=== PATIENT | female | born 1975 | race Caucasian/White ===

== ENCOUNTER 2021-04-29 08:25 | Emergency (ER) | payer OTHER, SELFPAY ==
--- NOTE | ~2021-04-29 | XR_ITS ---
EXAMINATION: XR CHEST CLINICAL INFORMATION: Chest pain COMPARISON: None TECHNIQUE: Frontal view of the chest was obtained. FINDINGS: No significant abnormality is noted involving the heart, lungs, mediastinum, bony thorax or soft tissues. XR/XR chest 1V IMPRESSION: Unremarkable examination.
[2021-04-29 08:28] VITALS: BP 196/121; PULSE 74; RESP 18; TEMP 36.6; O2SAT 100; BMI 28.3
--- NOTE | 2021-04-29 08:41 | ECG_ITS ---
Test Reason : TACHY Blood Pressure : / mmHG Vent. Rate : 068 BPM Atrial Rate : 068 BPM P-R Int : 126 ms QRS Dur : 078 ms QT Int : 440 ms P-R-T Axes : 000 039 033 degrees QTc Int : 467 ms Normal sinus rhythm Normal ECG No previous ECGs available Referred By: Navjot Gonzalez Electronically Signed By:SERGO HERRMANN
[2021-04-29 09:06] LABS: MANUAL DIFF FLAG NO
[2021-04-29 09:09] LABS: Basophils Percent Auto 0.4 % (0-2); Eosinophils Absolute Auto 0.1 X10*3/uL (0.0-0.4); Eosinophils Percent Auto 2.5 % (0-4); Hematocrit 33.8 % (37-47); Hemoglobin 11.2 g/dl (12.0-16.0); Imm Gran Abs Auto 0.01 X10*3/uL (0.00-0.03); Imm Gran Pct Auto 0.4 % (0.0-0.4); Lymphocytes Absolute Auto 0.9 X10*3/uL (1.2-4.9); Mean Corpuscular HGB Conc 33.1 g/dl (31.0-35.0); Mean Corpuscular Hemoglobin 29.7 pg (27.0-33.0); Mean Corpuscular Volume 89.7 fL (80-98); Mean Platelet Volume 9.8 fL (9.4-12.3); Monocytes Absolute Auto 0.3 X10*3/uL (0.1-1.2); Monocytes Percent Auto 11.9 % (2-11); Neutrophils Absolute Auto 1.5 X10*3/uL (2.0-8.3); Neutrophils Percent Auto 52.8 % (45-73); Platelet Count 219 X10*3/uL (160-400); Red Blood Count 3.77 X10*6/uL (4.20-5.50); Red Cell Distribution Width 13.4 % (11.0-16.0); White Blood Count 2.8 X10*3/uL (4.8-10.8)
[2021-04-29 09:30] LABS: Anion Gap 13 (12-20); Blood Urea Nitrogen 16 mg/dL (9-16); Calcium 8.4 mg/dL (8.4-10.2); Carbon Dioxide 24 mmol/L (22-29); Chloride 105 mmol/L (96-108); Creatinine Clr Calc Pharmacy 108.8; Estimated Glomerular Filt Rate > 60; Glucose Random 105 mg/dL (60-115); Potassium 3.2 mmol/L (3.3-5.1); Sodium 139 mmol/L (135-145)
[2021-04-29 09:48] LABS: Troponin-I High Sensitivity < 3.5 ng/L (<3.5-17.0)
[2021-04-29 10:44] VITALS: BP 196/97; PULSE 64; RESP 18; O2SAT 97
[2021-04-29] MEDS: Potassium Chloride Packet 20 MEQ PACKET 40 MEQ PO (10:46)
[2021-04-29] MEDS: diazePAM 5 MG TABLET PO (10:46)
[2021-04-29] MEDS: Ketorolac Tromethamine 30 MG/ML VIAL IVPUSH (10:46)
--- NOTE | 2021-04-29 11:14 | ED_ITS ---
HPI - Chest Pain General Chief Complaint: General Medical Stated Complaint: NUMBNESS RAPID HEART BEAT Time Seen by Provider: 04/29/21 10:18 Source: patient Mode of arrival: ambulatory Limitations: no limitations History of Present Illness HPI narrative: 45-year-old female with a past medical history of anxiety, depr ession, sleep disorder and alcohol abuse presenting to the ED with complaints of midsternal/left-sided chest pain with associated feeling like her heart is racing and left arm tingling/numbness that started on Sunday and has been constant. Reports associated generalized weakness. Reports this started when she was working at [employer] at nighttime. She reports it is worse when she palpates her midsternal/left chest/ breast area. She denies any dizziness, headaches, changes in vision, nausea /vomiting, jaw pain, cough, neck pain, dyspnea on exertion, orthopnea, shortness of breath, abdominal pain, back pain, dysuria, hematuria, lower extremity edema, recent travel or sick contacts, history of cancer or hypercoagulation disorder, recent surgery and she denies being on any OCPs. she denies any drug usage including cocaine. MD complaint: chest pain Onset (ago): day(s) ( 4 days) Timing of current episode: constant and still present Prior episodes: No Onset: other ( while at work) Pain location: substernal, left chest and other ( Left breast) Pain radiation: left arm Severity: moderate Quality: aching, sharp and shooting Relieving factors: nothing Exacerbating factors: palpation and movement Associated symptoms: palpitations Treatment prior to arrival: none Risk Factors Coronary artery disease risk factors: none Thoracic aortic dissection risk factors: none Related Data On Oral Contraceptives: No Previous Rx's Medication Instructions Recorded diazepam [Valium] 5 mg PO TID PRN #14 tab 04/29/21 Allergies Allergy/AdvReac Type Severity Reaction Status Date / Time Sulfa (Sulfonamide Allergy Unknown rash, Verified 10/21/15 00:00 Antibiotics) itching sulfamethoxazole Allergy Unknown HIVES Unverified 07/15/20 15:55 [From BACTRIM] trimethoprim [From BACTRIM] Allergy Unknown HIVES Unverified 07/15/20 15:55 Review of Systems Review of Systems: Constitutional : No Weight loss, No Fever, No Chills, No Night Sweats, No Fatigue, No Malaise ENT/Mouth : No Hearing loss, No Ear Pain, No Nasal Congestion, No Sinus Pain, No Hoarseness, No sore throat, No Rhinorrhea, No Swallowing Difficulty Eyes: No Eye Pain, No Swelling, No Redness, No Foreign Body, No Discharge, No Vision Changes Cardiovascular : positive chest pain /palpitations, No SOB, no Dyspnea on Exertion, No Orthopnea, No Edema, No extremity swelling Respiratory : No Cough, No Sputum, No Wheezing, No Dyspnea Gastrointestinal : No Nausea, No Vomiting, No Diarrhea, No abdominal Pain, No Hematochezia, No Melena Genitourinary : No irregular bleeding, No Dysuria, No Urinary Frequency, No Hematuria, No Urinary Incontinence, No Urgency, No Flank Pain, No Urinary Flow Changes, No Hesitancy Musculoskeletal : No joint pain, No Myalgias, No Joint Swelling Skin : No Skin Lesions, No rash Neuro : positive paresthesias to left arm, No Weakness, No Numbness, No Paresthesias, No Loss of Consciousness, No Dizziness, No Headache Psych : No Anxiety/Panic, No Depression, No SI/HI/AH/VH Heme/Lymph: No Bruising, No Bleeding,No Lymphadenopathy Endocrine : No Polyuria, No Polydipsia, No Temperature Intolerance Yes all other systems are reviewed and are negative [facility] Past Medical History Attestation statement: The following information was validated with the patient. Medical History No known health problems Surgical History Previous section Social History Social History Advance Directives: Yes Advance Directives Information Provided: Yes Advance Directives on File: No Physical Exam Vital Signs: Vital Signs: Last Vital Signs Temp 97.8 F 04/29/21 08:28 Pulse 64 04/29/21 10:44 Resp 18 04/29/21 10:44 BP 196/97 H 04/29/21 10:44 Pulse Ox 97 04/29/21 10:44 Body Mass Index 28.3 vital signs have been reviewed as normal and appeared to be correct. Blood pressure Hypertensive 196/121. Heart rate normal. Respiration rate normal. Temperature normal. Oxygen saturation normal. Appearance: Alert. Oriented X3. No acute distress. Head: Normal external exam. Normocephalic. Atraumatic. Eyes: PERRLA. EOMI. Conjunctiva and sclera normal. Eyelids normal. ENT: Pharynx normal. Uvula midline. Moist mucous membranes. Neck: Normal inspection. Neck supple. FROM. No adenopathy. Thyroid Normal. No meningeal signs. No neck mass noted. CVS: Normal heart rate and rhythm. Heart sound normal. Pulses normal throughout. No murmurs/rales/gallops. Respiratory: No respiratory distress. Painless inspiration. Breath sounds normal. No wheezes/rales/rhonchi noted. Chest reproducible anterior left-sided chest wall/ breast tenderness. No abscesses / lumps noted to the left breast area. No accessory muscle usage noted or decreased air movement noted. Abdomen: Soft and nontender. Bowel sounds normal in all 4 quadrants. No distention noted. No organomegaly noted. No visible injury noted. Back: Full range of motion noted. No rashes/lesion/induration/fluctuance or signs of infection noted. Skin: Skin warm and dry. Normal skin color. Normal skin turgor. No rashes/lesions/lacerations noted. Extremities: No lower extremity edema. No calf tenderness is noted. Extremities exhibit normal range of motion. Extremities nontender. Neuro: Oriented X 3. No motor deficit. No sensory deficit. Reflexes normal. Normal steady gait. No focal neuro deficits noted. Vascular: + radial pulses/+ 2 distal pedal pulses/+2 dorsalis pedis b/l. Normal cap refill. No cyanosis noted to upper extremity nails and lower extremity toes nails. Course Course Course Narrative: 9am 45-year-old female with a past medical history of anxiety, depression, sleep disorder and alcohol abuse presenting to the ED with complaints of midsternal/left-sided chest pain with associated feeling like her heart is racing and left arm tingling/numbness that started on Sunday and has been constant. Reports associated generalized weakness. Reports this started when she was working at [employer] at nighttime. She reports it is worse when she palpates her midsternal/left chest/ breast area. - labs were already drawn and the patient had white blood cell count of 2000. Mild anemia. Potassium of 3.2. Otherwise all other labs are within normal limits. EKG normal sinus rhythm and a ventricular rate of 68 with a normal MS interval normal QRS duration normal QT/ QTC interval. No acute ischemic changes are noted. No prior EKGs to compare to at this time. - Therefore Patient is being given p.o. potassium and 5 mg of Valium then will re-evaluate the patient's blood pressure due to could be elevated due to the patient's anxiety although I do not believe that this is cardiac related as this started at work she has no risk factors for ACS/PE. will re-evaluate. Reevaluation(s) Reevaluation #1: - patient's blood pressure remains elevated now at 183/104. Although patient reports symptomatic relief with the Valium. - The patient's blood pressure may be related to anxiety therefore explained to her that she should buy a blood pressure cuff machine and monitor her blood pressure for the next 2 weeks at least on Sunday/Sunday / Sunday and to write it down and to follow-up with her primary care provider although patient reports that she has not seen her primary care provider in [facility] therefore I contacted the on-call doctor Mandeep Garcia and he reported that he believes that the patient used to see Dr. Leighton Posada and that he would recommend that she contact the office to try to make a new appointment. therefore I gave the stephanie ent a copy of different primary care provider offices that she can contact to obtain a brand new PCP for recheck blood pressure within the next 2 weeks and to return if any new or worsening symptoms. Patient understands agrees with this plan. Time: 12:44 MDM - Chest Pain Medical Records Data Attestation: I reviewed the patient's medical records. Lab Data Attestation: I reviewed the patient's lab results. Result diagrams: 04/29/21 09:03 04/29/21 09:03 Labs: Lab Results 04/29/21 04/29/21 04/29/21 Range/Units 09:03 09:03 09:03 WBC 2.8 L (4.8-10.8) X10*3/uL RBC 3.77 L (4.20-5.50) X10*6/uL Hgb 11.2 L (12.0-16.0) g/dl Hct 33.8 L (37-47) % MCV 89.7 (80-98) fL MCH 29.7 (27.0-33.0) pg MCHC 33.1 (31.0-35.0) g/dl RDW 13.4 (11.0-16.0) % Plt Count 219 (160-400) X10*3/uL MPV 9.8 (9.4-12.3) fL Immature Gran % (Auto) 0.4 (0.0-0.4) % Neut % (Auto) 52.8 (45-73) % Lymph % (Auto) 32.0 (20-40) % Desha % (Auto) 11.9 H (2-11) % Eos % (Auto) 2.5 (0-4) % Baso % (Auto) 0.4 (0-2) % Lymph # (Auto) 0.9 L (1.2-4.9) X10*3/uL Desha # (Auto) 0.3 (0.1-1.2) X10*3/uL Eos # (Auto) 0.1 (0.0-0.4) X10*3/uL Baso # (Auto) 0.0 (0.0-0.2) X10*3/uL Abs Immat Gran (auto) 0.01 (0.00-0.03) X10*3/uL Absolute Neuts (auto) 1.5 L (2.0-8.3) X10*3/uL Absolute Nucleated RBC 0.000 (0.0-0.012) X10*3/uL Nucleated RBC % (auto) 0.0 (0.0-0.2) /100WBC Sodium 139 (135-145) mmol/L Potassium 3.2 L (3.3-5.1) mmol/L Chloride 105 (96-108) mmol/L Carbon Dioxide 24 (22-29) mmol/L Anion Gap 13 (12-20) BUN 16 (9-16) mg/dL Creatinine 0.57 (0.5-1.4) mg/dL Estim Creat Clear Calc 108.8 Estimated GFR > 60 Random Glucose 105 (60-115) mg/dL Calcium 8.4 (8.4-10.2) mg/dL Troponin I High Sens < 3.5 (<3.5-17.0) ng/L Imaging Data Chest x-ray: Attestation: I personally reviewed and interpreted this imaging study as follows: Radiologist's impression: FINDINGS: No significant abnormality is noted involving the heart, lungs, mediastinum, bony thorax or soft tissues. XR/XR chest 1V IMPRESSION: Unremarkable examination. ECG Data ECG #1: Attestation: I personally reviewed and interpreted this ECG as follows: ECG interpretation date: 04/29/21 ECG interpretation time: 08:41 Interpretation: EKG normal sinus rhythm and a ventricular rate of 68 with a normal MS interval normal QRS duration normal QT/ QTC interval. No acute ischemic changes are noted. Scores Heart Score History: -0- slightly suspicious ECG: -0- normal Age: -1- >45 - <65 Risk factory: -0- no risk factors known Troponin: -0- < or = normal limit Score: 1 Risk: 1.7% Discharge Plan Discharge Clinical Impression: Atypical chest pain, Hypertension Patient Disposition: Home, Self-Care Instructions: Chest Pain (ED), Heart Healthy Diet (ED), Hypertension (ED) Additional Instructions: your blood pressure was elevated today although this could be related to pain/anxiety therefore we will not be starting you on blood pressure medication today. It is very important that you start a heart healthy diet which includes increase your water intake, decrease salt from your diet, and exercise daily. This will help reduce her blood pressure so you do not have to take any blood pressure medication. I advised you that you should buy a blood pressure cuff monitor at the pharmacy and monitor your blood pressure for the next 2 weeks at least on Sunday/ Sunday / Sunday in the morning and write it down. I also gave you a list of numbers for primary care providers that you need to start calling today for a new primary care provider. When you obtain a new primary care provider I want you to follow-up with them with the blood pressure monitor ing you have recorded over the past 2 weeks seeking have proof if her blood pressure is elevated or not. You also had a low potassium of 3.2 I gave you p.o. potassium and he should have this recheck in the next 2 weeks. Return if any new or worsening symptoms. Start calling for a new primary care provider today. Prescriptions: New diazepam [Valium] 5 mg tablet 5 mg PO TID PRN (Reason: muscle spasm) Qty: 14 RF: 0 Referrals: Leighton Posada MD [Physician] - 2 days Stand Alone Forms: Work/School Release Print Language: Turkmen
== END 2021-04-29 13:12 | disposition home or self-care (01) ==
PROVIDERS: Emergency Provider Emergency Medicine Emergency Medical Services
DX: R07.89 Other chest pain (principal); I10 Essential (primary) hypertension; D64.9 Anemia, unspecified
CPT/HCPCS: 36415; 71045; 80048; 84484; 85025; 93005; 96374; 99283; 99284; J1885

== ENCOUNTER 2022-11-13 12:55 | Outpatient (REF) | payer OTHER, SELFPAY ==
[2022-11-13 13:58] LABS: MANUAL DIFF FLAG NO
[2022-11-13 14:04] LABS: Basophils Percent Auto 0.3 % (0-2); Hematocrit 41.7 % (37.0-47.0); Hemoglobin 12.8 g/dl (12.0-16.0); Imm Gran Abs Auto 0.01 X10*3/uL (0.00-0.03); Imm Gran Pct Auto 0.3 % (0.0-0.4); Lymphocytes Percent Auto 29.9 % (20-40); Mean Corpuscular HGB Conc 30.7 g/dl (31.0-35.0); Mean Corpuscular Volume 81.4 fL (80.0-98.0); Mean Platelet Volume 9.3 fL (9.4-12.3); Monocytes Absolute Auto 0.4 X10*3/uL (0.1-1.2); Monocytes Percent Auto 10.9 % (2-11); Neutrophils Percent Auto 58.6 % (45-73); Platelet Count 328 X10*3/uL (160-400); Red Blood Count 5.12 X10*6/uL (4.20-5.50); Red Cell Distribution Width 15.4 % (11.0-16.0); White Blood Count 3.4 X10*3/uL (4.8-10.8)
[2022-11-13 14:29] LABS: Alanine Aminotransferase 7 U/L (0-31); Albumin Level 4.5 g/dL (3.5-5.0); Alkaline Phosphatase 101 U/L (39-117); Anion Gap 14 (12-20); Aspartate Amino Transferase 13 U/L (5-31); Bilirubin Total 0.3 mg/dL (0.0-1.0); Blood Urea Nitrogen 13 mg/dL (9-16); Calcium 9.5 mg/dL (8.4-10.2); Carbon Dioxide 28 mmol/L (22-29); Chloride 100 mmol/L (96-108); Estimated Glomerular Filt Rate > 60; Glucose Random 108 mg/dL (60-115); Potassium 3.8 mmol/L (3.3-5.1); Sodium 138 mmol/L (135-145); Total Protein 7.4 g/dL (6.5-8.0)
[2022-11-13 14:33] LABS: TSH reflex Free T4 1.57 uIU/mL (0.32-4.0)
[2022-11-14 01:44] LABS: LDL Cholesterol Direct 246 mg/dL (<100)
== END 2022-11-13 12:56 | disposition home or self-care (01) ==
LOC: HO.HMGCLDS 12:55
PROVIDERS: PCP Internal Medicine; Visit Provider Internal Medicine
DX: F10.10 Alcohol abuse, uncomplicated (principal); F33.2 Major depressive disorder, recurrent severe without psychotic features; F41.0 Panic disorder [episodic paroxysmal anxiety]; G47.9 Sleep disorder, unspecified; Z91.51 Personal history of suicidal behavior
CPT/HCPCS: 36415; 80053; 83721; 84443; 85025

== ENCOUNTER 2022-12-22 10:01 | Outpatient (REF) | payer OTHER, SELFPAY ==
--- NOTE | ~2022-12-22 | XR_ITS ---
EXAMINATION: XR SHOULDER, RIGHT CLINICAL INFORMATION: Unspecified injury to shoulder and upper arm. COMPARISON: None TECHNIQUE: Three views of the right shoulder. FINDINGS: The bones and soft tissues are normal. No fracture. Glenohumeral and acromioclavicular alignment is anatomic with normal joint space. No abnormal soft tissue calcifications. XR/XR shoulder RT min 2V IMPRESSION: Normal right shoulder.
== END 2022-12-22 10:02 | disposition home or self-care (01) ==
LOC: HO.HMGCX 10:01
PROVIDERS: PCP Internal Medicine; Visit Provider Internal Medicine
DX: S49.91XA Unspecified injury of right shoulder and upper arm, initial encounter (principal)
CPT/HCPCS: 73030

== ENCOUNTER 2023-01-17 13:45 | Outpatient (REF) | payer OTHER, SELFPAY ==
--- NOTE | ~2023-01-17 | MM_ITS ---
EXAMINATION: MM SCREENING DIGITAL BREAST TOMOSYNTHESIS, BILATERAL CLINICAL INFORMATION: Screening. Asymptomatic. No family history breast cancer. The lifetime risk of breast cancer based on the Tyrer-Cuzick Model is 6%. COMPARISON: Mammography: 11/13/2015 (baseline) TECHNIQUE: Digital breast tomosynthesis is performed in both the craniocaudal and mediolateral oblique views along with computer-aided detection (CAD). Synthesized 2D images are generated from the tomosynthesis. FINDINGS: The breasts are heterogeneously dense, which may obscure small masses (ACR BI-RADS breast composition Category c). Parenchymal pattern is similar to prior exam and there is no interval mass or architectural abnormality or developing density no abnormal breast parenchymal calcifications. Skin contours are smooth. Left axillary node has some coarse calcification from prior granulomatous condition or related to tattoo pigment. MM/MM tomosynthesis screening BI IMPRESSION: No significant changes from baseline exam. ASSESSMENT: BI-RADS 2: Benign RECOMMENDATION: Routine annual mammography screening. This patient's information was entered into a reminder system with a target due date for their next mammogram.
== END 2023-01-17 13:46 | disposition home or self-care (01) ==
LOC: HO.MAMMO 13:45
PROVIDERS: Visit Provider Internal Medicine
DX: Z12.31 Encounter for screening mammogram for malignant neoplasm of breast (principal)
CPT/HCPCS: 77063; 77067

== ENCOUNTER 2023-02-01 05:27 | Emergency (ER) | payer OTHER, SELFPAY ==
[2023-02-01 05:47] VITALS: BP 126/89; PULSE 88; RESP 17; TEMP 37.1; O2SAT 100
[2023-02-01 05:48] VITALS: BP 126/89; PULSE 91; RESP 16; TEMP 36.7; O2SAT 100; BMI 24.4
[2023-02-01 06:08] LABS: Hemoglobin 11.3 g/dl (12.0-16.0); Mean Corpuscular HGB Conc 32.3 g/dl (31.0-35.0); Mean Corpuscular Hemoglobin 25.4 pg (27.0-33.0); Mean Corpuscular Volume 78.7 fL (80.0-98.0); Mean Platelet Volume 8.4 fL (9.4-12.3); Platelet Count 333 X10*3/uL (160-400); Red Blood Count 4.45 X10*6/uL (4.20-5.50); Red Cell Distribution Width 14.6 % (11.0-16.0); White Blood Count 5.2 X10*3/uL (4.8-10.8)
--- NOTE | 2023-02-01 06:59 | ED.GENADULT ---
HPI - General Adult General Chief complaint: General Medical Stated complaint: trouble breathing Time Seen by Provider: 02/01/23 06:59 Source: patient History of Present Illness HPI narrative: 47 yo presented c/o opioid withdrawal syndrome,SOB,nausea,body aches,denies fever,chest pain.Lats use 7 days ago Onset (ago): day(s) (7) Radiation: non-radiation Severity: moderate Exacerbating factors: none Related Data Home Medications Medication Instructions Recorded Confirmed bupropion HCl 300 mg 24 hr tablet, 300 mg PO DAILY 12/15/22 12/22/22 extended release prazosin 1 mg capsule 1 mg PO BEDTIME 12/15/22 12/22/22 Previous Rx's Medication Instructions Recorded hydroxyzine HCl 25 mg tablet 25 mg PO TID 30 days #90 tabs 11/02/22 terbinafine HCl 1 % topical cream 1 appl topical BID 2 weeks #30 11/02/22 (Athlete's Foot (terbinafine)) grams atorvastatin 40 mg tablet 40 mg PO BEDTIME High cholesterol 12/15/22 90 days #90 tabs diclofenac sodium 75 mg 75 mg PO BID pain 14 days #28 tabs 12/22/22 tablet,delayed release Allergies Allergy/AdvReac Type Severity Reaction Status Date / Time Sulfa (Sulfonamide Allergy Unknown rash, Verified 12/22/22 09:46 Antibiotics) itching sulfamethoxazole Allergy Unknown HIVES Verified 12/22/22 09:46 [From BACTRIM] trimethoprim [From BACTRIM] Allergy Unknown HIVES Verified 12/22/22 09:46 Review of Systems ENT: Reports system reviewed and no additional complaints, except as documented Cardiovascular: Cardiovascular: Reports no additional cardiovascular complaints Gastrointestinal: Gastrointestinal: Reports nausea PMFSH Past Medical History PMFSH Narrative: opioid abuse Medical History Alcohol abuse Anxiety Depression Hypertension No known health problems Rash of foot Sleep disorder Surgical History Previous section Family History Family History Other Mental health disorder Substance use disorder Social History Social History Housing: Apartment Alcohol intake: former Patient Tobacco Use Status: Current everyday Tobacco user (5 years ) Tobacco use type: Cigarette Years Smoked: 5 years e-Cigarette/Vaping Use: Never Used Substance Use Type: Heroin Current occupational status: unemployed Cognitive needs: No Hearing needs: No Vision needs: Yes Physical Exam ED Vital Signs: Vital Signs - 24 hr 02/01/23 05:48 02/01/23 05:47 02/01/23 10:46 Temperature 98.0 F 98.8 F 98.6 F Pulse Rate 91 88 88 Respiratory Rate 16 17 16 Blood Pressure 126/89 126/89 129/80 Pulse Oximetry 100 100 99 Oxygen Delivery Method Room Air Room Air Room Air BMI result Body Mass Index 24.4 Const General: cooperative, well developed, alert and awake Nutritional Appearance: average body habitus Orientation/consciousness: patient oriented x3 Limitations: no limitations HENMT Head: Yes normal to inspection General nose exam: Normal external nose present Mouth: Normal oral and palatal mucosa present Throat: Yes posterior oropharynx normal Neck Neck: Yes normal visual inspection Chest Chest palpation & inspection: normal inspection of the chest Resp Effort & Inspection: normal respiratory effort Cardio Jugular venous distension: no JVD Rate: regular rate Rhythm: regular rhythm GI Inspection: Yes normal to inspection Palpation (GI): Soft to palpation, not firm and nontender General: Yes no CVA tenderness Back/Spine/Pelvis Back: no CVA tenderness Skin General skin exam: no rashes or lesions noted and elasticity normal Lesions: no lesions Rashes: no rashes Neuro General: patient oriented x3 Course Reevaluation(s) Reevaluation #1: seeen by care team OK to d/c home Time: 10:48 Medications Administered Discontinued Medications Generic Name Dose Route Start Last Admin Trade Name Leandro PRN Reason Stop Dose Admin Clonidine HCl 0.1 mg 02/01/23 07:02 02/01/23 07:28 Clonidine Hcl 0.1 Mg Tablet PO 02/01/23 07:03 0.1 mg ONCE ONE Administration Protocol Lorazepam 1 mg 02/01/23 07:02 02/01/23 07:28 Lorazepam 1 Mg Tablet PO 02/01/23 07:03 1 mg ONCE ONE Administration Methadone HCl 5 mg 02/01/23 10:30 02/01/23 10:56 Methadone Hcl 20 Mg/2 Ml Oral.Conc PO 02/01/23 10:31 Not Given ONCE ONE Naloxone HCl 4 mg 02/01/23 10:54 02/01/23 10:57 Naloxone Hcl Nasal Take Home 4 Mg [place] NOSTRILALT 02/01/23 10:55 Not Given ONCE ONE Medical Decision Making Medical Decision Making [facility] Narrative: Patient presented with withdrawal syndrome from opioids will consult care team 10:45 AM seen by care team cleared for d/c home appropriate referrral given by care team Differential Diagnosis Differential Diagnoses: The differential diagnosis associated with the presentation includes overdose opioid/SI/Depression/anxiety Admission/Observation Consideration of admission/observation: Escalation of care including admission/observation considered Lab Data [facility] Lab Attestation statement: I reviewed the patient's lab results. 02/01/23 06:00 02/01/23 06:00 Labs: Lab Results 02/01/23 02/01/23 Range/Units 06:00 06:00 WBC 5.2 (4.8-10.8) X10*3/uL RBC 4.45 (4.20-5.50) X10*6/uL Hgb 11.3 L (12.0-16.0) g/dl Hct 35.0 L (37.0-47.0) % MCV 78.7 L (80.0-98.0) fL MCH 25.4 L (27.0-33.0) pg MCHC 32.3 (31.0-35.0) g/dl RDW 14.6 (11.0-16.0) % Plt Count 333 (160-400) X10*3/uL MPV 8.4 L (9.4-12.3) fL Absolute Nucleated RBC 0.000 (0.0-0.012) X10*3/uL Nucleated RBC % (auto) 0.0 (0.0-0.2) /100WBC Sodium 144 (135-145) mmol/L Potassium 3.3 (3.3-5.1) mmol/L Chloride 111 H (96-108) mmol/L Carbon Dioxide 24 (22-29) mmol/L Anion Gap 12 (12-20) BUN 16 (9-16) mg/dL Creatinine 0.67 (0.5-1.4) mg/dL Estim Creat Clear Calc 81.0 Estimated GFR > 60 Random Glucose 101 (60-115) mg/dL Calcium 9.0 (8.4-10.2) mg/dL Total Bilirubin 0.6 (0.0-1.0) mg/dL AST 9 (5-31) U/L ALT 8 (0-31) U/L Alkaline Phosphatase 80 (39-117) U/L Total Protein 6.7 (6.5-8.0) g/dL Albumin 4.3 (3.5-5.0) g/dL External Record Review External record reviewed: Inpatient record Discharge Plan Discharge Clinical Impression: Opioid abuse Patient Disposition: Home, Self-Care Instructions: Narcotic Use Disorder (ED) Prescriptions: No Action terbinafine HCl [Athlete's Foot (terbinafine)] 1 % cream 1 appl topical BID 14 Days Qty: 30 1RF hydroxyzine HCl 25 mg tablet 25 mg PO TID 30 Days Qty: 90 0RF bupropion HCl 300 mg tablet extended release 24 hr 300 mg PO DAILY prazosin 1 mg capsule 1 mg PO BEDTIME atorvastatin 40 mg tablet 40 mg PO BEDTIME 90 Days Qty: 90 0RF diclofenac sodium 75 mg tablet,delayed release (DR/EC) 75 mg PO BID 14 Days Qty: 28 0RF Rx Instructions: Take medication with food Referrals: Leighton Posada MD [Primary Care Provider] - 3 days Interventions: ED Discharge Assessment Last Done: 02/01/23 10:58 Discharge Date/Time: 02/01/23 11:00
[2023-02-01 07:00] LABS: Aspartate Amino Transferase 9 U/L (5-31); Bilirubin Total 0.6 mg/dL (0.0-1.0); Blood Urea Nitrogen 16 mg/dL (9-16); Carbon Dioxide 24 mmol/L (22-29); Chloride 111 mmol/L (96-108); Estimated Glomerular Filt Rate > 60; Glucose Random 101 mg/dL (60-115); Potassium 3.3 mmol/L (3.3-5.1); Sodium 144 mmol/L (135-145)
[2023-02-01 07:01] LABS: Alanine Aminotransferase 8 U/L (0-31); Albumin Level 4.3 g/dL (3.5-5.0); Alkaline Phosphatase 80 U/L (39-117); Anion Gap 12 (12-20); Total Protein 6.7 g/dL (6.5-8.0)
[2023-02-01] MEDS: LORazepam 1 MG TABLET PO (07:28)
[2023-02-01] MEDS: cloNIDine HCL 0.1 MG TABLET PO (07:28)
--- NOTE | 2023-02-01 07:32 | PC.NURSE ---
Alert and oriented, resp even and unlabored. Offering no complaints, medicated per the MAR. Tamela ari provided, call park in place.
--- NOTE | 2023-02-01 10:17 | PC.NURSE ---
Pt moved to cisneros bed, awaiting recovery team consult
--- NOTE | 2023-02-01 10:41 | HO.ADDICTCON ---
History of Present Illness Date of Service: 02/01/2023 Chief Complaint: trouble breathing Reason for Consult: opiate withdrawal Sources of Information: patient interviewed and chart reviewed HPI Narrative: Patient is a 47-year-old female who presented to the ED reporting difficulty breathing. During evaluation patient reported that she was withdrawing from opiates, therefore consult requested. 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 laying on the stretcher, covered in a blanket appearing slightly restless. Patient reports that 2 months ago she used heroin for the 1st time and progressed to daily use intranasally--highest use 2 bundles daily. Patient reports last use was of last week (January 25). She reports experiencing significant withdrawal symptoms at home that had mostly improved up until last evening when she fell she was having trouble breathing. She continues to experience joint pain, anxiety and restlessness. She is observed yawning x2 during interview and generally appeared uncomfortable. Patient expresses that she does not wish to initiate any medications for opioid use disorder, ?I never want to feel like that again?. She reports that she has never used opiates prior to this. Denies any cocaine use. Denies any alcohol use. Received clonidine and lorazepam upon entry to the ED. Discussed very low dose of methadone to assist with end of withdrawal symptoms, with no plan to continue methadone. Discussed risk reduction and will provide patient with recovery support resources should she need them in the future. Patient will also received take home Narcan along with instructions on how to use this. Review of Systems Constitutional: Reports as per HPI Diagnostics Vital Signs (24Hr): Vital Signs - 24 hr 02/01/23 05:48 02/01/23 05:47 Temperature 98.0 F 98.8 F Pulse Rate 91 88 Respiratory Rate 16 17 Blood Pressure 126/89 126/89 Pulse Oximetry 100 100 Oxygen Delivery Method Room Air Room Air BMI result Body Mass Index 24.4 Labs 02/01/23 06:00 02/01/23 06:00 Labs: Laboratory Results - last 48 hr 02/01/23 02/01/23 06:00 06:00 WBC 5.2 RBC 4.45 Hgb 11.3 L Hct 35.0 L MCV 78.7 L MCH 25.4 L MCHC 32.3 RDW 14.6 Plt Count 333 MPV 8.4 L Absolute Nucleated RBC 0.000 Nucleated RBC % (auto) 0.0 Sodium 144 Potassium 3.3 Chloride 111 H Carbon Dioxide 24 Anion Gap 12 BUN 16 Creatinine 0.67 Estim Creat Clear Calc 81.0 Estimated GFR > 60 Random Glucose 101 Calcium 9.0 Total Bilirubin 0.6 AST 9 ALT 8 Alkaline Phosphatase 80 Total Protein 6.7 Albumin 4.3 Mental Status Exam Mental Status Exam Patient Appearance: Perspiring Level of Consciousness: Awake and Appropriate Patient Behavior: Appropriate Mood Description: Anxious Affect Description: Anxious Judgement: Good Medications Allergies Allergies Allergy/AdvReac Type Severity Reaction Status Date / Time Sulfa (Sulfonamide Allergy Unknown rash, Verified 12/22/22 09:46 Antibiotics) itching sulfamethoxazole Allergy Unknown HIVES Verified 12/22/22 09:46 [From BACTRIM] trimethoprim [From BACTRIM] Allergy Unknown HIVES Verified 12/22/22 09:46 Assessment & Plan Assessment & Plan (1) Opioid withdrawal: Status: Acute Code(s): F11.93 - Opioid use, unspecified with withdrawal Assessment and Plan: methadone 5mg one time dose take home narcan recovery direct support professional to provide resources Total time managing care of this patient today _25___ minutes. PMFSH Past Medical History Medical History Alcohol abuse Anxiety Depression Hypertension No known health problems Rash of foot Sleep disorder Family History Family History Other Mental health disorder Substance use disorder Surgical History Surgical History Previous section Social History Social History Housing: Apartment Alcohol intake: former Patient Tobacco Use Status: Current everyday Tobacco user (5 years ) Tobacco use type: Cigarette Years Smoked: 5 years e-Cigarette/Vaping Use: Never Used Substance Use Type: Heroin Advance Directives: No Advance Directives Information Provided: No Patient : No Current occupational status: unemployed Cognitive needs: No Hearing needs: No Vision needs: Yes
[2023-02-01 10:46] VITALS: BP 129/80; PULSE 88; RESP 16; TEMP 37; O2SAT 99
== END 2023-02-01 11:00 | disposition home or self-care (01) ==
PROVIDERS: Emergency Provider Emergency Medicine; PCP Internal Medicine
DX: F11.93 Opioid use, unspecified with withdrawal (principal); R06.02 Shortness of breath; Z79.899 Other long term (current) drug therapy
CPT/HCPCS: 36415; 80053; 85027; 99284

== ENCOUNTER 2023-11-03 09:16 | Outpatient (AMB) | payer OTHER, SELFPAY ==
--- NOTE | 2023-11-03 10:08 | MHC.OFFWIV ---
Intake Vital Signs 11/03/23 10:17 Height 5 ft Weight 175 lb BMI 34.2 BP 112/70 Blood Pressure Location Rt brachial Position Sitting Pulse 84 Pulse Source Pulse Oximeter Temp 98.1 F Temp Source Oral Pulse Oximetry (%) 96 Oxygen Delivery Method Room Air Intake Visit Reasons: EP, hand numbness/pain ([phone]) Intake Note: Pt is here today c/o Lt hand numbness and pain x2wks Patient Tobacco Use Status: Current everyday Tobacco user (5 years ) Allergies Sulfa (Sulfonamide Antibiotics) Allergy (Unknown, Verified 11/03/23 10:09) rash, itching sulfamethoxazole [From BACTRIM] Allergy (Unknown, Verified 11/03/23 10:09) HIVES trimethoprim [From BACTRIM] Allergy (Unknown, Verified 11/03/23 10:09) HIVES Do you need a note to return to daycare/school/sports/work: No HPI HPI Comments History of Present Illness Details 47-year-old female who presents for numbness and tingling bilaterally. The past several weeks she has had numbness and tingling burning in her lower extremities now absent scribed to her upper extremities. The lower extremities have since resolved. [facility] Medical History Alcohol abuse Anxiety Depression Hypertension No known health problems Rash of foot Sleep disorder Surgical History Previous section Family History Other Mental health disorder Substance use disorder Social History Housing: Apartment Alcohol intake: former Patient Tobacco Use Status: Current everyday Tobacco user (5 years ) Tobacco use type: Cigarette Years Smoked: 5 years e-Cigarette/Vaping Use: Never Used Substance Use Type: Heroin Current occupational status: unemployed Cognitive needs: No Hearing needs: No Vision needs: Yes Review of Systems Neuro Reports burning sensations Physical Exam Vital Signs: Last Vital Signs Temp 98.1 F 11/03/23 10:17 Pulse 84 11/03/23 10:17 BP 112/70 11/03/23 10:17 Pulse Ox 96 11/03/23 10:17 Oxygen Delivery Method Room Air 11/03/23 10:17 BMI result Body Mass Index 34.2 Const General: cooperative, healthy appearing, no acute distress and alert Orientation/consciousness: patient oriented x3 Limitations: no limitations HEENT Head: Yes normal to inspection Ears: hearing grossly normal bilaterally General nose exam: Normal external nose present Resp Effort & Inspection: normal respiratory effort and able to speak in complete sentences Cardio Rate: regular rate Skin General skin exam: no rashes or lesions noted Neuro General: patient oriented x3 Extrem General: Yes normal to inspection Results AMB Random Glucose (hemocue) AMB Random Glucose (hemocue) 73 mg/dL Last Edit by Alka Villanueva CMA on 11/03/23 10:46 Assessment & Plan Assessment & Plan (1) Polyneuropathy: Code(s): G62.9 - Polyneuropathy, unspecified Plan: Unclear etiology of patient's symptoms. Resemble polyneuropathy to be secondary to vitamin deficiency as patient has a history of alcoholism. Will check basic CBC folate B12 levels. Random glucose was performed and 73 so suspicion for diabetic neuropathy. Orders: Orders AMB Random Glucose (hemocue) Today Z13.9 - Encounter for screening, unspecified Coding Level of Care Code Est Pt Level 3 (95725) Diagnoses Polyneuropathy G62.9
[2023-11-03 10:17] VITALS: BP 112/70; PULSE 84; TEMP 36.7; O2SAT 96; BMI 34.2
== END 2023-11-03 10:46 | disposition home or self-care (01) ==
PROVIDERS: PCP Internal Medicine; Visit Provider Physician Assistant
DX: G62.9 Polyneuropathy, unspecified (principal)
CPT/HCPCS: 82948; 99051; 99213

== ENCOUNTER 2023-11-03 10:47 | Outpatient (REF) | payer OTHER, SELFPAY | END 2023-11-03 10:48 | disposition home or self-care (01) | LOC: HO.HMGCLDS 10:47 | PROVIDERS: PCP Internal Medicine; Visit Provider Internal Medicine | DX: E78.9 Disorder of lipoprotein metabolism, unspecified (principal); F33.2 Major depressive disorder, recurrent severe without psychotic features | CPT/HCPCS: 36415; 80053; 80061 ==

== ENCOUNTER 2023-11-23 15:03 | Outpatient (AMB) | payer OTHER, SELFPAY ==
[2023-11-23 15:07] VITALS: BP 138/86; PULSE 92; O2SAT 98; BMI 34.6
--- NOTE | 2023-11-23 15:07 | A.OFFPC_ITS ---
Vital Signs 11/23/23 15:07 Height 5 ft Weight 177 lb 2 oz BMI 34.6 BP 138/86 Blood Pressure Location Lt brachial Position Sitting Pulse 92 Pulse Source Pulse Oximeter Pulse Oximetry (%) 98 Oxygen Delivery Method Room Air Intake Visit Reasons: follow lab results Allergies Sulfa (Sulfonamide Antibiotics) Allergy (Unknown, Verified 11/23/23 15:08) rash, itching sulfamethoxazole [From BACTRIM] Allergy (Unknown, Verified 11/23/23 15:08) HIVES trimethoprim [From BACTRIM] Allergy (Unknown, Verified 11/23/23 15:08) HIVES Medication List - Last Reconciled 11/23/23 by Leighton Posada MD methadone 95 mg PO DAILY quetiapine (Seroquel) 150 mg PO BEDTIME Tobacco use date assessed: 11/23/23 Dental Screening Dental Screen Date: 11/23/23 Did you have a dental visit in the last 12 months?: Yes Did you have a dental problem in the last 6 months where you did not have access to dental care?: No Was dental information given to patient?: Patient has dentist HPI follow lab results HPI Details Patient is a 47-year-old female came in today to be evaluated for numbness and tingling in her left hand Patient says that it has been happening for a while, 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 [facility] Medical History Rash of foot Alcohol abuse Sleep disorder Anxiety Depression Hypertension No known health problems Surgical History Previous section Family History Other Mental health disorder Substance use disorder Social History Housing: Apartment Alcohol intake: former Patient Tobacco Use Status: Current everyday Tobacco user (5 years ) Tobacco use type: Cigarette Years Smoked: 5 years e-Cigarette/Vaping Use: Never Used Substance Use Type: Heroin Current occupational status: unemployed Cognitive needs: No Hearing needs: No Vision needs: Yes Questionnaire Thrive Questionnaire Date Thrive assessed: 01/13/22 JOCELYNE-7 AMB Questionnaire JOCELYNE-7 Date JOCELYNE - 7 assessed: 11/02/22 Source: Developed by Drs. Naren Ohara, Mary Hernandez, Hamilton Marcial and colleagues, with an educational alisha from [email or web address]. Review of Systems Const Denies chills and Denies fever(s) ENT Denies epistaxis and Denies nasal discharge Card Denies chest pain Resp Denies chest congestion, Denies cough and Denies hemoptysis GI Denies diarrhea and Denies nausea Skin/Breast Denies rash Neuro Reports no additional complaints Psych Reports no additional complaints Endo Reports no additional complaints Physical exam (Primary Care) Vital Signs: Last Vital Signs Pulse 92 11/23/23 15:07 BP 138/86 11/23/23 15:07 Pulse Ox 98 11/23/23 15:07 Oxygen Delivery Method Room Air 11/23/23 15:07 BMI result Body Mass Index 34.6 Tobacco/Smoking Status: Tobacco use Status Tobacco use date assessed 11/23/23 11/23/23 15:12 Patient Tobacco Use Status Current everyday Tobacco (5 11/23/23 15:12 years ) Tobacco use type Cigarette 11/23/23 15:12 e-Cigarette/Vaping Use Never Used 11/23/23 15:12 Thrive Assessment: Date of Thrive Assessment Date Thrive assessed 01/13/22 11/23/23 15:12 Const General: cooperative, comfortable and no acute distress Orientation/consciousness: patient oriented x3 [facility] Head: Yes normocephalic Eyes Other: Pupils reactive to light, right conjunctiva slightly injected, no discharge noticed no photophobia, no pain with palpation Neck Neck: Yes supple Resp Effort & Inspection: normal respiratory effort, no cough and no stridor Cardio Rhythm: regular rhythm Heart sounds: S1 normal heart sound present and S2 normal heart sound present Skin General skin exam: turgor normal Neuro General: patient oriented x3, tone normal and moves all extremities Extrem Other: Left wrist with full range of motion, hand emergency nurse equal both sides, radial pulse 2 +both sides Right lower extremity: no edema Left lower extremity: no edema Assessment and Plan Assessment & Plan (1) Carpal tunnel syndrome of left wrist: Code(s): G56.02 - Carpal tunnel syndrome, left upper limb (2) Conjunctivitis, right eye: Code(s): H10.9 - Unspecified conjunctivitis Qualifiers: Acute conjunctivitis type: unspecified Conjunctivitis type: acute Qualified Code(s): H10.31 - Unspecified acute conjunctivitis, right eye Plan Patient is a 47-year-old female came in today to be evaluated for numbness and tingling in her left hand Patient says that it has been happening for a while, 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 Medications: New ciprofloxacin HCl 0.3% one drop in effected eye 6 hours a part for 5 days 5 mL 0RF diclofenac sodium 75 mg PO BID 20 tabs 0RF pain 10 days Refilled atorvastatin 40 mg PO BEDTIME 90 tabs 1RF High cholesterol 90 days Coding Level of Care Code Est Pt Level 3 (93445) Diagnoses Carpal tunnel syndrome of left wrist G56.02 Acute conjunctivitis of right eye, unspecified acute conjunctivitis type H10.31 Acute conjunctivitis type: unspecified Conjunctivitis type: acute
== END 2023-11-23 15:55 | disposition home or self-care (01) ==
PROVIDERS: PCP Internal Medicine; Visit Provider Internal Medicine
DX: G56.02 Carpal tunnel syndrome, left upper limb (principal); H10.31 Unspecified acute conjunctivitis, right eye
CPT/HCPCS: 99213

== ENCOUNTER 2023-12-22 08:51 | Emergency (ER) | payer OTHER, SELFPAY ==
[2023-12-22 08:53] VITALS: BP 141/99; PULSE 75; RESP 16; TEMP 36.7; O2SAT 97; BMI 32.2
--- NOTE | 2023-12-22 10:25 | ED.GENADULT ---
HPI - General Adult General Chief complaint: General Medical Stated complaint: food poisoning? Time Seen by Provider: 12/22/23 09:48 Source: patient Mode of arrival: ambulatory Limitations: no limitations History of Present Illness HPI narrative: 48 yo female here with complaints of 2 days of chills, rhinorrhea, nausea/vomiting which is now resolved. Over all feeling improved but needs work note. No shortness of breath, chest pain, fevers, headache, neck pain, neck stiffness, abdominal pain, diarrhea, urinary symptoms. Related Data Home Medications Medication Instructions Recorded Confirmed methadone 10 mg/mL oral syringe 95 mg PO DAILY 11/03/23 11/23/23 (FOR ORAL USE ONLY) quetiapine 100 mg tablet (Seroquel) 150 mg PO BEDTIME 11/03/23 11/23/23 Previous Rx's Medication Instructions Recorded atorvastatin 40 mg tablet 40 mg PO BEDTIME High cholesterol 11/23/23 90 days #90 tabs ciprofloxacin HCl 0.3 % eye drops See Rx Instructions ophthalmic 11/23/23 (eye) .COMPLEX #5 mL diclofenac sodium 75 mg 75 mg PO BID pain 10 days #20 tabs 11/23/23 tablet,delayed release Allergies Allergy/AdvReac Type Severity Reaction Status Date / Time Sulfa (Sulfonamide Allergy Unknown rash, Verified 12/22/23 08:53 Antibiotics) itching sulfamethoxazole Allergy Unknown HIVES Verified 12/22/23 08:53 [From BACTRIM] trimethoprim [From BACTRIM] Allergy Unknown HIVES Verified 12/22/23 08:53 Review of Systems Review of Systems: Yes all other systems are reviewed and are negative Constitutional: Constitutional: Reports no additional constitutional complaints, Denies body ache(s), Reports chills, Denies fever(s), Denies headache(s) and Denies weakness Eyes: Eyes: Reports no additional eye complaints and Denies change in vision ENT: Reports system reviewed and no additional complaints, except as documented, Denies dizziness, Denies headache(s), Reports nasal congestion, Denies nasal discharge and Denies neck pain Cardiovascular: Cardiovascular: Reports no additional cardiovascular complaints, Denies chest pain, Denies leg edema and Denies dyspnea Respiratory: Respiratory: Reports no additional respiratory complaints, Denies cough and Denies dyspnea Gastrointestinal: Gastrointestinal: Reports no additional gastrointestinal complaints, Denies abdominal pain, Denies diarrhea, Reports nausea and Reports vomiting Genitourinary: Genitourinary: Reports no additional female genitourinary complaints and Denies urinary incontinence Musculoskeletal: Musculoskeletal: Reports no additional musculoskeletal complaints, Denies back pain, Denies arthralgias, Denies joint swelling, Denies neck pain, Denies numbness and Denies tingling Integumentary/Breasts: Skin/Breast: Reports system reviewed and no additional complaints, except as docu and Denies rash Neurologic: Reports system reviewed and no additional complaints, except as documented, Denies Abnormal speech present, Denies dizziness, Denies headache(s), Denies numbness, Denies tingling and Denies weakness PMFSH Past Medical History Attestation statement: The following information was validated with the patient. Source: old records reviewed and nursing notes reviewed Medical History Rash of foot Alcohol abuse Sleep disorder Anxiety Depression Hypertension No known health problems Surgical History Previous section Family History Family History Other Mental health disorder Substance use disorder Social History Social History Housing: Apartment Alcohol intake: former Patient Tobacco Use Status: Current everyday Tobacco user (5 years ) Tobacco use type: Cigarette Years Smoked: 5 years e-Cigarette/Vaping Use: Never Used Substance Use Type: Heroin Advance Directives: No Advance Directives Information Provided: No Current occupational status: unemployed Cognitive needs: No Hearing needs: No Vision needs: Yes Physical Exam ED Vital Signs: Vital Signs - 24 hr 12/22/23 08:53 Temperature 98.1 F Pulse Rate 75 Respiratory Rate 16 Blood Pressure 141/99 H Pulse Oximetry 97 BMI result Body Mass Index 32.2 Const General: cooperative, healthy appearing, comfortable and no acute distress Orientation/consciousness: patient oriented x3 Limitations: no limitations HENMT Head: Yes normal to inspection Ears: hearing grossly normal bilaterally and TM's normal bilaterally General nose exam: Normal external nose present Face and sinus: Yes normal facial exam Mouth: Normal oral and palatal mucosa present Throat: Yes posterior oropharynx normal and Yes tonsils normal Eyes General: appearance normal, both eyes and all related structures Pupils: Equal, round and reactive pupils present Neck Neck: Yes normal visual inspection, Yes full ROM, Yes no lymphadenopathy and Yes no meningeal signs Chest Chest palpation & inspection: normal inspection of the chest Resp Effort & Inspection: normal respiratory effort Auscultation: clear to auscultation bilaterally Cardio Rate: regular rate Rhythm: regular rhythm Peripheral pulses: Peripheral pulses 2+ throughout GI Inspection: Yes normal to inspection Palpation (GI): Soft to palpation and nontender Auscultation: normal bowel sounds Back/Spine/Pelvis Thoracic/Lumbar Spine: thoracic and lumbar spine normal to inspection Skin General skin exam: no rashes or lesions noted Neuro General: patient oriented x3, no meningeal signs, no focal motor deficits and normal sensation to monofilament Cranial nerves: Yes Equal, round and reactive pupils present Cognition (Neuro): normal cognition Speech: No Abnormal speech present Gait exam (Neuro): Normal gait present Motor exam (neuro): 5/5 motor strength present throughout Extrem General: Yes normal to inspection Course Course Course Narrative: viral testing negative. Likely viral syndrome. Patient well-appearing, tolerating p.o.. Recommend supportive care at home. Reviewed worrisome signs and symptoms of when to return to the emergency room. Comfortable plan for discharge home. Medical Decision Making Medical Decision Making [facility] [place] Narrative: 48 yo female here with complaints of 2 days of chills, rhinorrhea, nausea/vomiting which is now resolved. Over all feeling improved but needs work note. No shortness of breath, chest pain, fevers, headache, neck pain, neck stiffness, abdominal pain, diarrhea, urinary symptoms. Exam is benign. Will send viral testing Differential Diagnosis Differential Diagnoses: The differential diagnosis associated with the presentation includes viral syndrome Admission/Observation Consideration of admission/observation: Escalation of care including admission/observation considered Lab Data [facility] [place] Lab Attestation statement: I reviewed the patient's lab results. Labs: Lab Results 12/22/23 Range/Units 10:11 COVID-19 (KATIE) Negative (Negative) COVID-19 Clin Com See Note Influenza Type A (DIXIE) Negative (Negative) Influenza Type B (DIXIE) Negative (Negative) Influenza A & B Note See Note Tests considered The following testing was considered but not selected: no hypoxia or tachypnea to suggest need for chest x-ray Prescription Management I considered prescription management with: Antibiotic Discharge Plan Discharge Clinical Impression: Acute viral syndrome Patient Disposition: Home, Self-Care Instructions: Viral Syndrome (ED) Additional Instructions: testing for flu and COVID are negative Alternate Motrin and Tylenol for any pain or fever Increase fluids, rest at home Prescriptions: No Action quetiapine [Seroquel] 100 mg tablet 150 mg PO BEDTIME methadone 10 mg/mL syringe 95 mg PO DAILY atorvastatin 40 mg tablet 40 mg PO BEDTIME 90 Days Qty: 90 1RF ciprofloxacin HCl 0.3 % drops See Rx Instructions ophthalmic (eye) .COMPLEX Qty: 5 0RF Rx Instructions: one drop in effected eye 6 hours a part for 5 days diclofenac sodium 75 mg tablet,delayed release (DR/EC) 75 mg PO BID 10 Days Qty: 20 0RF Referrals: Leighton Posada MD [Primary Care Provider] - 1 week Stand Alone Forms: Work/School Release
[2023-12-22 10:36] LABS: COVID-19 Test Negative (Negative); IDNOW Serial# 152EDE1D; IDNOW Serial# 9DB6401D; Influenza A Negative (Negative); Influenza B2 Negative (Negative)
== END 2023-12-22 10:57 | disposition home or self-care (01) ==
PROVIDERS: Nurse Practitioner Family; Emergency Provider Emergency Medicine; PCP Internal Medicine
DX: B34.9 Viral infection, unspecified (principal); J34.89 Other specified disorders of nose and nasal sinuses; R68.83 Chills (without fever); R11.2 Nausea with vomiting, unspecified; Z11.52 Encounter for screening for COVID-19
CPT/HCPCS: 87502; 87635; 99283

== ENCOUNTER 2025-01-12 19:03 | Emergency (ER) | payer OTHER, SELFPAY ==
--- NOTE | 2025-01-12 19:28 | MHC.EDTECH ---
pt refused vitals at this time.
[2025-01-12 19:31] VITALS: RESP 16; BMI 31.2
--- NOTE | 2025-01-12 19:58 | PC.NURSE ---
Pt was seen walking towards hospital doors by ED board of education secretary. This RN went into back [facility], no one seen Pt by description. Security made aware.
== END 2025-01-12 20:24 | disposition left against medical advice (07) ==
PROVIDERS: Emergency Provider Emergency Medicine
DX: R40.4 Transient alteration of awareness (principal)
CPT/HCPCS: 99281

== ENCOUNTER 2025-04-26 14:19 | Emergency (ER) | payer OTHER, SELFPAY ==
--- NOTE | ~2025-04-26 | CT_ITS ---
CLINICAL HISTORY: Lower abdominal pain. Rectal bleeding for [address] abdomen and pelvis with contrast Comparison: None provided Findings: The lung bases are clear. The liver, gallbladder, spleen, adrenal glands and pancreas are unremarkable. Kidneys, ureters and bladder are normal. Uterus and adnexa appear within normal limits by CT. No bowel obstruction or free air. Normal appendix. No free fluid, abscess or adenopathy. Near-complete disc space loss at L5-S1. Mild atherosclerotic disease. Impression: No definite acute process by CT. This document has been electronically signed by: Juancarlos Durant MD on 04/26/2025 18:51:58
[2025-04-26 14:32] VITALS: BP 154/107; PULSE 79; RESP 16; TEMP 36.6; O2SAT 99; BMI 33.1
--- NOTE | 2025-04-26 14:33 | ED.GENADULT ---
HPI - General Adult General Chief complaint: GI Bleed Stated complaint: vaginal bleeding Time Seen by Provider: 04/26/25 15:44 Related Data Home Medications ?Medication ?Instructions ?Recorded ?Confirmed methadone 10 mg/mL oral syringe 95 mg PO DAILY 11/03/23 11/23/23 (FOR ORAL USE ONLY) quetiapine 100 mg tablet (Seroquel) 150 mg PO BEDTIME 11/03/23 11/23/23 Previous Rx's ?Medication ?Instructions ?Recorded atorvastatin 40 mg tablet 40 mg PO BEDTIME High cholesterol 11/23/23 90 days #90 tabs ciprofloxacin HCl 0.3 % eye drops See Rx Instructions ophthalmic 11/23/23 (eye) .COMPLEX #5 mL diclofenac sodium 75 mg 75 mg PO BID pain 10 days #20 tabs 11/23/23 tablet,delayed release amoxicillin 875 mg-potassium 1 tab PO Q12H 10 days #20 tabs 04/26/25 clavulanate 125 mg tablet Allergies Allergy/AdvReac Type Severity Reaction Status Date / Time Sulfa (Sulfonamide Allergy Unknown rash, Verified 04/26/25 14:35 Antibiotics) itching sulfamethoxazole (From Allergy Unknown HIVES Verified 04/26/25 14:35 BACTRIM) trimethoprim (From BACTRIM) Allergy Unknown HIVES Verified 04/26/25 14:35 PMFSH Past Medical History Medical History Rash of foot Alcohol abuse Sleep disorder Anxiety Depression Hypertension No known health problems Surgical History Previous section Family History Family History Other Mental health disorder Substance use disorder Social History Social History Housing: Apartment Alcohol intake: former Patient Tobacco Use Status: Current everyday Tobacco user (5 years ) Tobacco use type: Cigarette Years Smoked: 5 years e-Cigarette/Vaping Use: Never Used Substance Use Type: Marijuana Current occupational status: unemployed Cognitive needs: No Hearing needs: No Vision needs: Yes Physical Exam ED Vital Signs: Vital Signs - 24 hr 04/26/25 14:32 04/26/25 15:11 04/26/25 16:00 Temperature 97.9 F 98.7 F Pulse Rate 79 75 80 Respiratory Rate 16 20 16 Blood Pressure 154/107 H 130/81 130/76 Pulse Oximetry 99 100 100 Oxygen Delivery Method Room Air Room Air Room Air 04/26/25 18:00 04/26/25 19:40 04/26/25 19:48 Temperature 98.0 F 98.6 F 98.6 F Pulse Rate 66 70 70 Respiratory Rate 18 19 19 Blood Pressure 139/66 161/94 H 161/94 H Pulse Oximetry 97 99 99 Oxygen Delivery Method Room Air Room Air Room Air BMI result Body Mass Index 33.1 Course Course Course Narrative: This is a Rapid Medical Examination (RME) performed by Hipolito Smalls PA-C in triage. Full HPI, ROS, assessment and treatment plan per primary provider in the Main ED. Hx: 49 yo F hx of etoh abusea, anxiety, depression, insomnia here w/ rectal bleeding x2 days, now having palpitations. also endorses RUQ pain rad to back. states she quit drinking etoh 9 days ago. states she is struggling with this, feels ill. has attempted to quit in the past. Plan: labs, UA, OBS Reevaluation(s) Reevaluation #1: This is a duplicate note. Please refer to dr. brown completed note regarding patient's visit on 04/26/2025. Medications Administered Discontinued Medications Generic Name Dose Route Start Last Admin Trade Name Freq PRN Reason Stop Dose Admin Famotidine 20 mg 04/26/25 16:23 04/26/25 16:32 Famotidine/Pf 20 Mg/2 Ml Vial IVPUSH 04/26/25 16:24 20 mg ONCE ONE Administration Sodium Chloride 1,000 mls @ 999 mls/hr 04/26/25 16:13 04/26/25 17:24 Ns IV 04/26/25 17:13 Infused .Q1H1M STA Infusion Iohexol 85 ml 04/26/25 17:17 04/26/25 17:18 Iohexol 350 Mg/Ml 100 Ml Infus..Btl IV 04/26/25 17:18 85 ml ONCE ONE Administration Medical Decision Making Lab Data 04/26/25 14:43 04/26/25 14:43 Labs: Lab Results 06/29/25 06/29/25 Range/Units 14:43 16:11 WBC 5.0 (4.8-10.8) X10*3/uL RBC 4.09 L (4.20-5.50) X10*6/uL Hgb 11.7 L (12.0-16.0) g/dl Hct 35.7 L (37.0-47.0) % MCV 87.3 (80.0-98.0) fL MCH 28.6 (27.0-33.0) pg MCHC 32.8 (31.0-35.0) g/dl RDW 13.1 (11.0-16.0) % Plt Count 316 (160-400) X10*3/uL MPV 9.3 L (9.4-12.3) fL Immature Gran % (Auto) 0.4 (0.0-0.4) % Neut % (Auto) 57.3 (45-73) % Lymph % (Auto) 33.3 (20-40) % [place] % (Auto) 7.2 (2-11) % Eos % (Auto) 1.4 (0-4) % Baso % (Auto) 0.4 (0-2) % Lymph # (Auto) 1.7 (1.2-4.9) X10*3/uL [place] # (Auto) 0.4 (0.1-1.2) X10*3/uL Eos # (Auto) 0.1 (0.0-0.4) X10*3/uL Baso # (Auto) 0.0 (0.0-0.2) X10*3/uL Abs Immat Gran (auto) 0.02 (0.00-0.03) X10*3/uL Absolute Neuts (auto) 2.9 (2.0-8.3) x10*3/uL Absolute Nucleated RBC 0.000 (0.0-0.012) X10*3/uL Nucleated RBC % (auto) 0.0 (0.0-0.2) /100WBC Sodium 140 (135-145) mmol/L Potassium 3.7 (3.3-5.1) mmol/L Chloride 106 (96-108) mmol/L Carbon Dioxide 24 (22-29) mmol/L Anion Gap 14 (12-20) BUN 15 (9-16) mg/dL Creatinine 0.62 (0.5-1.4) mg/dL Estim Creat Clear Calc 99.4 Estimated GFR > 60 Random Glucose 104 (60-115) mg/dL Calcium 9.2 (8.4-10.2) mg/dL Magnesium 1.9 (1.6-2.6) mg/dL Total Bilirubin 0.5 (0.0-1.0) mg/dL AST 16 (5-31) U/L ALT 21 (0-31) U/L Alkaline Phosphatase 108 (39-117) U/L Total Protein 7.6 (6.5-8.0) g/dL Albumin 4.9 (3.5-5.0) g/dL Lipase 18 (8-78) U/L Urine Color Dark Yellow Urine Appearance Clear Urine pH 5.5 (5.0-9.0) Ur Specific [place] >= 1.030 H (1.005-1.025) Urine Protein Trace (Neg-Trace) mg/dL Urine Glucose (UA) Negative (Negative) mg/dL Urine Ketones Trace (Negative) mg/dL Urine Blood Negative (Negative) Urine Nitrite Negative (Negative) Ur Leukocyte Esterase Negative (Negative) Stool Occult Blood Cancelled Ethyl Alcohol < 10 mg/dL Discharge Plan Discharge Clinical Impression: Rectal bleeding, Paronychia of finger Patient Disposition: Home, Self-Care Instructions: Rectal Bleeding (ED), Paronychia (ED) Additional Instructions: Recommend follow up with the primary care provider. You will be just was antibiotics for your right middle finger paronychia. Recommend warm compress on finger. If no improvement return to the ED immediately. Return to the ED immediately for any abdominal pain, profuse rectal bleeding, chest pain, shortness of breath, dizziness, finger swelling, hand swelling, red streaks, or any other concerning symptoms. Prescriptions: New amoxicillin-pot clavulanate 875-125 mg tablet 1 tab PO Q12H 10 Days Qty: 20 0RF No Action quetiapine [Seroquel] 100 mg tablet 150 mg PO BEDTIME methadone 10 mg/mL syringe 95 mg PO DAILY atorvastatin 40 mg tablet 40 mg PO BEDTIME 90 Days Qty: 90 1RF ciprofloxacin HCl 0.3 % drops See Rx Instructions ophthalmic (eye) .COMPLEX Qty: 5 0RF Rx Instructions: one drop in effected eye 6 hours a part for 5 days diclofenac sodium 75 mg tablet,delayed release (DR/EC) 75 mg PO BID 10 Days Qty: 20 0RF Referrals: [facility] [place] G[facility]ology Services [Provider Group, Gastroenterology] - 2 days Referral Note: Rectal bleeding Clinical Impression: Rectal bleeding Leighton Posada MD [Primary Care Provider, Internal Medicine] - 2 days Referral Note: rectal bleeding. parynochia, catch scratch Clinical Impression: Paronychia of finger; Rectal bleeding Stand Alone Forms: Work/School Release Interventions: ED Discharge Assessment Last Done: 04/26/25 19:48 Discharge Date/Time: 04/26/25 19:51 Print Language: Malaysian
[2025-04-26 14:49] LABS: MANUAL DIFF FLAG NO
[2025-04-26 14:50] LABS: Appearance Urine Clear; Basophils Percent Auto 0.4 % (0-2); Color Urine Dark Yellow; Eosinophils Absolute Auto 0.1 X10*3/uL (0.0-0.4); Eosinophils Percent Auto 1.4 % (0-4); Glucose Urine UA Negative (Negative); Hematocrit 35.7 % (37.0-47.0); Hemoglobin 11.7 g/dl (12.0-16.0); Imm Gran Abs Auto 0.02 X10*3/uL (0.00-0.03); Imm Gran Pct Auto 0.4 % (0.0-0.4); Leukocyte Esterase Urine Negative (Negative); Lymphocytes Absolute Auto 1.7 X10*3/uL (1.2-4.9); Lymphocytes Percent Auto 33.3 % (20-40); Mean Corpuscular HGB Conc 32.8 g/dl (31.0-35.0); Mean Corpuscular Hemoglobin 28.6 pg (27.0-33.0); Mean Corpuscular Volume 87.3 fL (80.0-98.0); Mean Platelet Volume 9.3 fL (9.4-12.3); Monocytes Absolute Auto 0.4 X10*3/uL (0.1-1.2); Monocytes Percent Auto 7.2 % (2-11); Neutrophils Absolute Auto 2.9 x10*3/uL (2.0-8.3); Neutrophils Percent Auto 57.3 % (45-73); Nitrite Urine Negative (Negative); PH 5.5 (5.0-9.0); Platelet Count 316 X10*3/uL (160-400); Red Blood Count 4.09 X10*6/uL (4.20-5.50); Red Cell Distribution Width 13.1 % (11.0-16.0); Specific Gravity - Urine >= 1.030 (1.005-1.025); Urine Blood Negative (Negative); Urine Ketones Trace mg/dL (Negative); Urine Protein Trace mg/dL (Neg-Trace)
--- NOTE | 2025-04-26 15:03 | PC.NURSE ---
pt is alert and oriented, skin appropriate for ethnicity, respirations even and unlabored, ls clear, pt's sclera slightly jaundice in appearance, pt reports being a really heavy drinker and quite about 9 days ago, no alcohol withdrawal symptoms at this time, pt is reporting rectal bleeding-bright red blood x2 days had nausea and vomiting for a couple of days but that resoled, pt is not on any blood thinners, vs stable and ns on the monitor
[2025-04-26 15:05] LABS: Alanine Aminotransferase 21 U/L (0-31); Albumin Level 4.9 g/dL (3.5-5.0); Alkaline Phosphatase 108 U/L (39-117); Anion Gap 14 (12-20); Aspartate Amino Transferase 16 U/L (5-31); Bilirubin Total 0.5 mg/dL (0.0-1.0); Blood Urea Nitrogen 15 mg/dL (9-16); Calcium 9.2 mg/dL (8.4-10.2); Carbon Dioxide 24 mmol/L (22-29); Chloride 106 mmol/L (96-108); Creatinine Clr Calc Pharmacy 99.4; Estimated Glomerular Filt Rate > 60; Glucose Random 104 mg/dL (60-115); Lipase 18 U/L (8-78); Magnesium 1.9 mg/dL (1.6-2.6); Potassium 3.7 mmol/L (3.3-5.1); Sodium 140 mmol/L (135-145); Total Protein 7.6 g/dL (6.5-8.0)
[2025-04-26 15:08] LABS: Ethanol < 10 mg/dL
[2025-04-26 15:11] VITALS: BP 130/81; PULSE 75; RESP 20; O2SAT 100
[2025-04-26 16:00] VITALS: BP 130/76; PULSE 80; RESP 16; TEMP 37.1; O2SAT 100
--- NOTE | 2025-04-26 16:13 | ED.GENADULT ---
HPI - General Adult General Chief complaint: GI Bleed Stated complaint: vaginal bleeding Time Seen by Provider: 04/26/25 15:44 Source: patient Mode of arrival: ambulatory Limitations: no limitations History of Present Illness ED Provider: Brian Couch HPI narrative: 49-year-old female history of alcohol abuse, depression, anxiety, presents to the ED for lower abdominal pain with diarrhea with rectal bleeding for the past 2 days. Patient also states mild right upper quadrant tenderness on palpation. Patient denies vomiting blood. Patient states last drink was 9 days ago. Patient denies any chest pain or shortness of breath. Patient denies any recent long travel or recent surgery. Patient denies any new antibiotics. Related Data Home Medications ?Medication ?Instructions ?Recorded ?Confirmed methadone 10 mg/mL oral syringe 95 mg PO DAILY 11/03/23 11/23/23 (FOR ORAL USE ONLY) quetiapine 100 mg tablet (Seroquel) 150 mg PO BEDTIME 11/03/23 11/23/23 Previous Rx's ?Medication ?Instructions ?Recorded atorvastatin 40 mg tablet 40 mg PO BEDTIME High cholesterol 11/23/23 90 days #90 tabs ciprofloxacin HCl 0.3 % eye drops See Rx Instructions ophthalmic 11/23/23 (eye) .COMPLEX #5 mL diclofenac sodium 75 mg 75 mg PO BID pain 10 days #20 tabs 11/23/23 tablet,delayed release amoxicillin 875 mg-potassium 1 tab PO Q12H 10 days #20 tabs 04/26/25 clavulanate 125 mg tablet Allergies Allergy/AdvReac Type Severity Reaction Status Date / Time Sulfa (Sulfonamide Allergy Unknown rash, Verified 04/26/25 14:35 Antibiotics) itching sulfamethoxazole (From Allergy Unknown HIVES Verified 04/26/25 14:35 BACTRIM) trimethoprim (From BACTRIM) Allergy Unknown HIVES Verified 04/26/25 14:35 Review of Systems Review of Systems: lower abdominal pain, diarrhea, blood in stool, RUQ pain Yes all other systems are reviewed and are negative PMFSH Past Medical History Medical History Rash of foot Alcohol abuse Sleep disorder Anxiety Depression Hypertension No known health problems Surgical History Previous section Family History Family History Other Mental health disorder Substance use disorder Social History Social History Housing: Apartment Alcohol intake: former Patient Tobacco Use Status: Current everyday Tobacco user (5 years ) Tobacco use type: Cigarette Years Smoked: 5 years e-Cigarette/Vaping Use: Never Used Substance Use Type: Marijuana Current occupational status: unemployed Cognitive needs: No Hearing needs: No Vision needs: Yes Physical Exam ED Vital Signs: Vital Signs - 24 hr 04/26/25 14:32 04/26/25 15:11 04/26/25 16:00 Temperature 97.9 F 98.7 F Pulse Rate 79 75 80 Respiratory Rate 16 20 16 Blood Pressure 154/107 H 130/81 130/76 Pulse Oximetry 99 100 100 Oxygen Delivery Method Room Air Room Air Room Air 04/26/25 18:00 Temperature 98.0 F Pulse Rate 66 Respiratory Rate 18 Blood Pressure 139/66 Pulse Oximetry 97 Oxygen Delivery Method Room Air BMI result Body Mass Index 33.1 Const General: cooperative, healthy appearing, comfortable, no acute distress, well developed, alert, awake and Physically active Orientation/consciousness: patient oriented x3 HENMT Head: Yes normal to inspection, Yes No palpable skull fracture present, Yes normocephalic and Yes atraumatic Eyes General: appearance normal, both eyes and all related structures Neck Neck: Yes normal visual inspection, Yes full ROM, Yes no lymphadenopathy, Yes no meningeal signs, Yes trachea midline, Yes supple, No anterior neck swelling and No tender Chest Chest palpation & inspection: normal inspection of the chest and normal palpation of entire chest wall Resp Effort & Inspection: normal respiratory effort Auscultation: clear to auscultation bilaterally, no rales, no rhonchi and no wheezes Cardio Jugular venous distension: no JVD Heart sounds: S1 normal heart sound present and S2 normal heart sound present GI Other: Rectal exam negative for anal fissure/external hemorrhoids. Negative for bright red blood, black stool, or melena. Inspection: Yes normal to inspection Palpation (GI): Soft to palpation, not firm, Tenderness to palpation present (GI) in the LLQ and in the RLQ, no guarding and not rigid General: Yes no CVA tenderness Back/Spine/Pelvis Back: no CVA tenderness and No back tenderness Skin General skin exam: no rashes or lesions noted, elasticity normal and turgor normal Neuro General: patient oriented x3, gait normal, tone normal, moves all extremities, Normal light touch and pain sensation, no meningeal signs, no focal motor deficits, CN's II-XI intact bilaterally and normal sensation to monofilament Extrem General: Yes normal to inspection, Yes full ROM and Yes capillary refill normal Psych Appearance: grossly normal, well kempt and not disheveled Medications Administered Discontinued Medications Generic Name Dose Route Start Last Admin Trade Name Leandro PRN Reason Stop Dose Admin Famotidine 20 mg 04/26/25 16:23 04/26/25 16:32 Famotidine/Pf 20 Mg/2 Ml Vial IVPUSH 04/26/25 16:24 20 mg ONCE ONE Administration Sodium Chloride 1,000 mls @ 999 mls/hr 04/26/25 16:13 04/26/25 17:24 Ns IV 04/26/25 17:13 Infused .Q1H1M STA Infusion Iohexol 85 ml 04/26/25 17:17 04/26/25 17:18 Iohexol 350 Mg/Ml 100 Ml Infus..Btl IV 04/26/25 17:18 85 ml ONCE ONE Administration Medical Decision Making Medical Decision Making MDM Narrative: 49-year-old female presents to ED for lower abdominal pain, RUQ pain, and rectal bleeding. Patient's vital signs are stable. Patient is presently not in alcohol withdrawal. Not suspecting Barretts esophagus or while in his esophagus tear. Low suspicion for GI bleed. Due to diarrhea rectal bleeding was sent for CT scan. Negative for any obvious blood on rectal exam. Hemoglobin medical stable. 7:16pm: CT scan does not show any acute etiologies. Patient rectal exam negative for any active bleeding. UA negative UTI and . Patient informed me she was scratched by her cat in the right middle finger. She states cat is up-to-date with rabies. Physical exam shows paronychia. Patient refused incision and drainage and preferred to do a trial of antibiotics. This on and green discharge around cuticle. Patient explained worrisome signs and informed to return to the ED immediately. Not suspecting GI bleed, tenosynovitits, giovanni dory tear, borheaves, or any other life threatening etiology. Differential Diagnosis Differential Diagnoses: The differential diagnosis associated with the presentation includes (Rectal bleeding, colitis, diverticulitis, paronychia, cat scratch) Admission/Observation Consideration of admission/observation: Escalation of care including admission/observation considered Lab Data 04/26/25 14:43 04/26/25 14:43 Labs: Lab Results 04/26/25 04/26/25 Range/Units 14:43 16:11 WBC 5.0 (4.8-10.8) X10*3/uL RBC 4.09 L (4.20-5.50) X10*6/uL Hgb 11.7 L (12.0-16.0) g/dl Hct 35.7 L (37.0-47.0) % MCV 87.3 (80.0-98.0) fL MCH 28.6 (27.0-33.0) pg MCHC 32.8 (31.0-35.0) g/dl RDW 13.1 (11.0-16.0) % Plt Count 316 (160-400) X10*3/uL MPV 9.3 L (9.4-12.3) fL Immature Gran % (Auto) 0.4 (0.0-0.4) % Neut % (Auto) 57.3 (45-73) % Lymph % (Auto) 33.3 (20-40) % [place] % (Auto) 7.2 (2-11) % Eos % (Auto) 1.4 (0-4) % Baso % (Auto) 0.4 (0-2) % Lymph # (Auto) 1.7 (1.2-4.9) X10*3/uL [place] # (Auto) 0.4 (0.1-1.2) X10*3/uL Eos # (Auto) 0.1 (0.0-0.4) X10*3/uL Baso # (Auto) 0.0 (0.0-0.2) X10*3/uL Abs Immat Gran (auto) 0.02 (0.00-0.03) X10*3/uL Absolute Neuts (auto) 2.9 (2.0-8.3) x10*3/uL Absolute Nucleated RBC 0.000 (0.0-0.012) X10*3/uL Nucleated RBC % (auto) 0.0 (0.0-0.2) /100WBC Sodium 140 (135-145) mmol/L Potassium 3.7 (3.3-5.1) mmol/L Chloride 106 (96-108) mmol/L Carbon Dioxide 24 (22-29) mmol/L Anion Gap 14 (12-20) BUN 15 (9-16) mg/dL Creatinine 0.62 (0.5-1.4) mg/dL Estim Creat Clear Calc 99.4 Estimated GFR > 60 Random Glucose 104 (60-115) mg/dL Calcium 9.2 (8.4-10.2) mg/dL Magnesium 1.9 (1.6-2.6) mg/dL Total Bilirubin 0.5 (0.0-1.0) mg/dL AST 16 (5-31) U/L ALT 21 (0-31) U/L Alkaline Phosphatase 108 (39-117) U/L Total Protein 7.6 (6.5-8.0) g/dL Albumin 4.9 (3.5-5.0) g/dL Lipase 18 (8-78) U/L Urine Color Dark Yellow Urine Appearance Clear Urine pH 5.5 (5.0-9.0) Ur Specific [place] >= 1.030 H (1.005-1.025) Urine Protein Trace (Neg-Trace) mg/dL Urine Glucose (UA) Negative (Negative) mg/dL Urine Ketones Trace (Negative) mg/dL Urine Blood Negative (Negative) Urine Nitrite Negative (Negative) Ur Leukocyte Esterase Negative (Negative) Stool Occult Blood Cancelled Ethyl Alcohol < 10 mg/dL Independent Historian Clinical information obtained from an independent historian. History obtained from or confirmed by: Other (Patient) Prescription Management I considered prescription management with: Antibiotic Discharge Plan Discharge Clinical Impression: Rectal bleeding, Paronychia of finger Patient Disposition: Home, Self-Care Instructions: Rectal Bleeding (ED), Paronychia (ED) Additional Instructions: Recommend follow up with the primary care provider. You will be just was antibiotics for your right middle finger paronychia. Recommend warm compress on finger. If no improvement return to the ED immediately. Return to the ED immediately for any abdominal pain, profuse rectal bleeding, chest pain, shortness of breath, dizziness, finger swelling, hand swelling, red streaks, or any other concerning symptoms. Prescriptions: New amoxicillin-pot clavulanate 875-125 mg tablet 1 tab PO Q12H 10 Days Qty: 20 0RF No Action quetiapine [Seroquel] 100 mg tablet 150 mg PO BEDTIME methadone 10 mg/mL syringe 95 mg PO DAILY atorvastatin 40 mg tablet 40 mg PO BEDTIME 90 Days Qty: 90 1RF ciprofloxacin HCl 0.3 % drops See Rx Instructions ophthalmic (eye) .COMPLEX Qty: 5 0RF Rx Instructions: one drop in effected eye 6 hours a part for 5 days diclofenac sodium 75 mg tablet,delayed release (DR/EC) 75 mg PO BID 10 Days Qty: 20 0RF Referrals: [facility] [place] G[facility]ology Services [Provider Group, Gastroenterology] - 2 days Referral Note: Rectal bleeding Clinical Impression: Rectal bleeding Leighton Posada MD [Primary Care Provider, Internal Medicine] - 2 days Referral Note: rectal bleeding. parynochia, catch scratch Clinical Impression: Paronychia of finger; Rectal bleeding Stand Alone Forms: Work/School Release Interventions: ED Discharge Assessment Last Done: 04/26/25 19:48 Discharge Date/Time: 04/26/25 19:51 Print Language: Turkish
[2025-04-26] MEDS: 0.9 % Sodium Chloride 1,000 ML 999 ML IV (16:23)
[2025-04-26] MEDS: Famotidine/PF 20 MG/2 ML VIAL IVPUSH (16:32)
[2025-04-26] MEDS: iohexoL 350 MG/ML 100 ML INFUS..BTL 85 ML IV (17:18)
[2025-04-26 18:00] VITALS: BP 139/66; PULSE 66; RESP 18; TEMP 36.7; O2SAT 97
[2025-04-26 19:40] VITALS: BP 161/94; PULSE 70; RESP 19; TEMP 37; O2SAT 99
[2025-04-26 19:48] VITALS: BP 161/94; PULSE 70; RESP 19; TEMP 37; O2SAT 99
== END 2025-04-26 19:51 | disposition home or self-care (01) ==
PROVIDERS: Physician Assistant Medical; Emergency Provider Emergency Medicine; PCP Internal Medicine
DX: L03.011 Cellulitis of right finger (principal); K62.5 Hemorrhage of anus and rectum; R10.30 Lower abdominal pain, unspecified; R10.811 Right upper quadrant abdominal tenderness; Z79.899 Other long term (current) drug therapy; Z51.81 Encounter for therapeutic drug level monitoring
CPT/HCPCS: 36415; 74177; 80053; 80307; 81003; 83690; 83735; 85025; 96361; 96374; 99284; 99285; J1308; Q9967

== ENCOUNTER → 2025-04-26 16:13 | Outpatient (BNV) | payer OTHER, SELFPAY | PROVIDERS: Emergency Provider Emergency Medicine; PCP Internal Medicine; Visit Provider Radiology Vascular & Interventional Radiology | DX: R10.30 Lower abdominal pain, unspecified (principal) | CPT/HCPCS: 74177 ==